=== PATIENT | female | born 1985 ===

== ENCOUNTER 2024-06-05 01:38 | Emergency (ER) | payer OTHER ==
[~2024-06-05] VITALS: Ht 165.1 cm; Wt 86.4 kg
[2024-06-05 01:52] VITALS: BP 123/90; PULSE 116; RESP 14; TEMP 98.3; O2SAT 99
[2024-06-05] MEDS ORDERED: INSULIN REGULAR, HUMAN 100 UNITS/ML SQ ONE (02:15)
== END 2024-06-05 02:46 ==
LOC: EMS 01:42
DX: F10.129 Alcohol abuse with intoxication, unspecified (principal); E11.65 Type 2 diabetes mellitus with hyperglycemia; Y90.9 Presence of alcohol in blood, level not specified; Z88.1 Allergy status to other antibiotic agents
CPT/HCPCS: 82962; 99283